=== PATIENT | male | born 1960 | race Caucasian/White ===

== ENCOUNTER → 2024-06-10 | Outpatient (CLI) | payer BC ==
--- NOTE | 2024-06-10 12:44 | XR ---
EXAMINATION TYPE: XR chest 2V DATE OF EXAM: 06/10/2024 COMPARISON: None INDICATION: Cough TECHNIQUE: Frontal and lateral views of the chest are obtained. FINDINGS: The heart size is normal. The pulmonary vasculature is normal. The lungs are clear. IMPRESSION: 1. No acute pulmonary process.
== END | disposition home or self-care (01) ==
LOC: RADXRMAIN 11:54
PROVIDERS: ATTEND Family Medicine
DX: R36.1 Hematospermia (principal); R09.89 Other specified symptoms and signs involving the circulatory and respiratory systems; R05.8 Other specified cough
CPT/HCPCS: 71046

== ENCOUNTER → 2024-06-28 | Outpatient (CLI) | payer BC ==
--- NOTE | 2024-06-28 20:21 | US ---
EXAMINATION TYPE: US scrotum with doppler. Grayscale and color Doppler Duplex imaging performed of wilmer quintanilla scrotum. DATE OF EXAM: 06/28/2024 COMPARISON: NONE CLINICAL INDICATION: Male, 64 years old with history of R36.1 BLOOD IN SEMEN; Blood in semen. Patient states he has had hernia surgery in the past. Slightly unclear history. EXAM MEASUREMENTS: TESTICLES: Right Testicle: not visualized . Correlate for previous surgery, congenital absence or undescended t esticle. Left Testicle: 3.0 x 2.1 x 1.4 cm EPIDIDYMIS HEAD: Right Epididymis: not visualized Left Epididymis: 0.7 x 0.9 x 1.0 cm Doppler performed to assess for testicular vascularity; color flow and waveforms are seen within the left testicle. Right testicle not visualized. Presence of hydroceles: No Presence of varicoceles: Prominent vessels measure 4 mm on the left. IMPRESSION: 1. The right testicle is not visualized and should be correlated with clinical exam. 2. Left testicle has a normal appearance. There are prominent vessels which could represent a small v aricocele.
== END | disposition home or self-care (01) ==
LOC: RADUSWWP 07:19
PROVIDERS: ATTEND Internal Medicine
DX: R36.1 Hematospermia (principal)
CPT/HCPCS: 76870; 93976